=== PATIENT | male | born 1970 | race Caucasian/White ===

== ENCOUNTER 2020-06-04 05:39 | Day surgery (SDC) | payer OTHER ==
[~2020-06-04] VITALS: Ht 177.8 cm; Wt 76.0 kg
[~2020-06-04 05:39] MED LIST: CYCLOBENZAPRINE10 MG PO; CYMBALTA30 MG PO; FLOMAX0.4 MG PO; IBUPROFEN600 MG PO; NAPROXEN500 MG PO; OXYCODON-ACETA1 EAC2 PO; PRAZOSIN HCL1 MG PO; REMERON15 MG PO; RESVERATROL50 MG PO; TYLENOL325 MG PO
--- NOTE | 2020-06-04 09:21 | NUR ---
06/04/20 0921 Joaquín Ashford RESPONDS TO JAW THRUST ON ENTRY TO PACU. ATTEMPTING TO REORIENT PT TO TIME AND SITUATION WITH NO SUCCESS. SHALLOW SUCTION USED TO CLEAR OPA.
[2020-06-04] MEDS ORDERED: IBUPROFEN600 MG PO (09:25)
[2020-06-04] MEDS ORDERED: ACETAMINOPHEN500 MG PO (09:25)
[2020-06-04] MEDS ORDERED: OXYCODON-ACETA1 EAC2 PO (09:25)
--- NOTE | 2020-06-04 10:08 | NUR ---
PATIENT BACK TO ROOM, REPORT AT BEDSIDE WITH KISHORE GIVENS. PATIENT REPORTS PAIN 4/10 ON PAIN SCALE. NO INCREASED DRAINAGE TO LEFT INGUINAL SURGICAL SITE. PATIENT EATING CRACKERS AND SIPS OF WATER. ADMINSTERED PAIN MEDICATION PER MAR. PATIENT DROWSY, CALL LIGHT WITHIN REACH. NO OTHER NEEDS AT THIS TIME.
--- NOTE | 2020-06-04 10:13 | NUR ---
PATIENT REQUESTED NURSE TO CALL TO UPDATE ON WHEN TO PICK PATIENT UP. PATIENT VERBALIZED UNDERSTANDING.
--- NOTE | 2020-06-04 10:17 | NUR ---
PT ALERT, ORIENTED AND RECENTLY HAD THIS SURGERY ON R SIDE. PT SEEEMS INFORMED, HAS FEW QUESTIONS-ALL ANSWERED. PT REQUESTED PRAYER AND WOULD LIKE PRAYER FOR OTHER ISSUES PT IS FACING. WILL FOLLOW NEEDED
--- NOTE | 2020-06-04 10:35 | NUR ---
PT USES CALL LIGHT TO NOTIFY RN OF URGE TO VOID. IV SALINE LOCKED AND SCD'S REMOVED. PT SITS AT SIDE OF BED PRIOR TO STANDING, DENIES DIZZINESS OR NAUSEA WITH POSITION CHANGE. STEADY GAIT WITH RN ASSIST. ABLE TO VOID 300 MLS DARK YELLOW URINE. BACK TO DS RM 5, PROVIDED WARM BLANKETS. PT STATES PAIN IS TOLERABLE AT THIS TIME. CALL LIGHT WITHIN REACH, SCD'S BACK IN PLACE AND PUMPING.
--- NOTE | 2020-06-04 11:13 | NUR ---
PT DC FROM DS RM 5 VIA WC TO SPOUSE WAITING IN PERSONAL VEHICLE AT HOSPITAL FRONT ENTRANCE TO HOME.
--- NOTE | 2020-06-04 18:21 | OR ---
[facility] [address], [place] [address] Signed DATE OF OPERATION: 06/04/2020 SURGEON: Easton Mckeon MD PREOPERATIVE DIAGNOSIS: Left inguinal hernia. POSTOPERATIVE DIAGNOSES: 1. Left indirect and direct hernia with sliding component (colon). 2. Cord lipoma. PROCEDURES: 1. Repair of left inguinal hernia with implantation of Prolene mesh. 2. Excision of cord lipoma. ANESTHESIA: General endotracheal; Liv Zainab, WEED CUTTER, and local 20 mL of 0.25% Marcaine with epinephrine. INDICATION: This 49-year-old white man is a patient of Dr. Mandy Hahn. He underwent right inguinal hernia repair by me on January 11, 2020. He has recovered from that well. The patient has noted some left groin pain particularly with standing or straining. Examination now shows him to have a left inguinal hernia. He is admitted at this time to undergo repair of the hernia with implantation of Prolene mesh most likely. The risks of bleeding, infection, recurrence, and other unforeseen complications were reviewed in detail. He understands and wished to proceed. FINDINGS: The floor was quite attenuated consistent with direct hernia, but he also had a wide-mouth relatively short indirect sac as well. Within the indirect hernia sac was a sliding component of colon, which was freed up. The hernia sac was ligated and excised. A sizable cord lipoma was also noted, this was excised. Implantation of Prolene mesh in the properitoneal space allowed for repair of the direct hernia as well. DESCRIPTION OF PROCEDURE: The patient was brought to the operating room, given a general endotracheal anesthetic. Preoperative antibiotic Ancef was given. Sequential compression device stockings used and heparin subcutaneously administered. After clipping the lower abdomen on the left side was prepared with a chlorhexidine solution and draped sterilely. An incision was Electronically Signed By: EASTON MCKEON MD 06/04/20 1821 PATIENT NAME: MIGUEL ANGEL BERKOWITZ JR OPERATIVE REPORT DATE OF : 74 REPORT #: [id number] PHYSICIAN: EASTON MCKEON MD PCP: SHASHA SHIPLEY MD REPORT IS CONFIDENTIAL AND NOT TO BE RELEASED WITHOUT AUTHORIZATION [facility] [address], [place] [address] Signed made cephalad to the pubic tubercle. Dissection carried through the subcutaneous tissue with blunt and electrocautery dissection. The external oblique was incised along its fibers revealing the underlying cord. The ilioinguinal nerve was dissected free from the cremasteric muscle fibers reflected laterally. The external oblique was secured medially and laterally. The cord was mobilized from the floor with blunt and electrocautery dissection and encircled with a Austin drain. Marked attenuation of the floor was noted consistent with direct hernia. The bulkiness at the origin of the spermatic cord was dissected and found to have a wide-mouth indirect sac. This was dissected free from the cord as far as possible to the properitoneal space opened and found to have some sliding component of the sigmoid colon, this was freed with sharp dissection. The wide mouth neck of the hernia sac was secured with running 2-0 silk suture under direct visualization and secured additionally with the silk suture and redundant hernia sac amputated and passed for pathology. The stump protruded to the properitoneal space. Allis clamps applied to the tendon of the transversus abdominis. The attenuated fibers of the fascia of the transversalis were incised with electrocautery. Blunt dissection was used to separate the properitoneal fat. A segment of Prolene mesh was cut to an elliptical configuration and secured in an underlay technique with interrupted 2-0 Prolene sutures. A defect was cut in the graft to accommodate the cord. Special care was taken to secure the lateral aspect of the implanted mesh so as to avoid entrapment of the ilioinguinal nerve, which was well out of harm's way. 20 mL of 0.25% Marcaine with epinephrine was injected locally for postop analgesic benefit. The ilioinguinal nerve and the cord were replaced into the canal and the external oblique was reapproximated with running 2-0 Vicryl. Josue layer was reapproximated with interrupted 2-0 Vicryl and skin was closed with running subcuticular of 3-0 Vicryl. Steri-Strips were applied. A silver sponge dressing was then applied. The patient was ultimately extubated and transferred to the recovery room in good condition having suffered no complications. Sponge, needle, and instrument counts were reported as correct x3. MD MILLER Avilez/GIULIANOL /[id number] cc: Mandy Hahn MD Electronically Signed By: EASTON MCKEON MD 06/04/20 1821 PATIENT NAME: MIGUEL ANGEL BERKOWITZ JR SHIVANI OPERATIVE REPORT DATE OF : 74 REPORT #: [id number] PHYSICIAN: EASTON MCKEON MD PCP: SHASHA SHIPLEY MD REPORT IS CONFIDENTIAL AND NOT TO BE RELEASED WITHOUT AUTHORIZATION [facility] [address] [place] [address] Signed Copies: MANDY HAHN MD ~ Electronically Signed By: EASTON MCKEON MD 06/04/20 182 PATIENT NAME: SHO MIGUEL ANGEL GARCIA OPERATIVE REPORT DATE OF : 74 REPORT #: [id number] PHYSICIAN: EASTON MCKEON MD PCP: SHASHA SHIPLEY MD REPORT IS CONFIDENTIAL AND NOT TO BE RELEASED WITHOUT AUTHORIZATION
== END 2020-06-04 11:07 | disposition home or self-care (01) ==
LOC: DS 05:39
PROVIDERS: ATTEND Surgery
PROC: 0YU60JZ Supplement Left Inguinal Region with Synthetic Substitute, Open Approach (ICD-10-PCS; principal; 2020-06-04 06:45)
DX: K40.91 Unilateral inguinal hernia, without obstruction or gangrene, recurrent (principal); D17.6 Benign lipomatous neoplasm of spermatic cord; F12.20 Cannabis dependence, uncomplicated; M54.16 Radiculopathy, lumbar region; K21.9 Gastro-esophageal reflux disease without esophagitis; F32.9 Major depressive disorder, single episode, unspecified; Z88.8 Allergy status to other drugs, medicaments and biological substances; Z79.899 Other long term (current) drug therapy; Z87.891 Personal history of nicotine dependence; Z98.52 Vasectomy status
CPT/HCPCS: 00830; C1781; J0330; J0690; J1100; J1644; J1885; J2001; J2250; J2405; J2704; J7121